=== PATIENT | female | born 1975 | race Caucasian/White ===

== ENCOUNTER 2019-08-24 12:23 | Day surgery (SDC) | payer OTHER ==
[2019-08-24 12:49] VITALS: TEMP 97.6
--- NOTE | 2019-08-24 13:52 | US ---
ULTRASOUND GUIDED FNA THYROID BIOPSY: CLINICAL HISTORY: Left thyroid nodule FINDINGS: The procedure was explained to the patient. The risks, complications, benefits and alternatives were discussed and any questions were answered. Informed consent was obtained. Patient was placed supin e on the ultrasound table and prepped and draped in the usual sterile fashion. Utilizing a 25 gauge needle, five passes were made into the requested left thyroid nodule. Patient was stable throughout the procedure. Pathology is pending. All elements of maximal barrier technique were utilized. IMPRESSION: 1. Successful ultrasound guided FNA thyroid biopsy.
[2019-08-24 13:58] VITALS: BP 99/68; PULSE 58; RESP 14
--- NOTE | 2019-08-24 14:27 | US ---
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 Thyroid nodule GLAND SIZE: Right Lobe: 5.0 x 1.2 x 1.7 cm Overall Parenchyma: homogenous Left Lobe: 4.5 x 2.1 x 2.2 cm Overall Parenchyma: homogeneous Isthmus Thickness: 0.3 cm NODULES RIGHT: # of nodules measured on right: 1 1. 0.4 X 0.3 x 0.4 cm hypoechoic solid nodule at the upper pole with well-defined margins. This nod ule is wider than tall and shows no intranodular vascularity. Prior size: no previous LEFT: # of nodules measured on left: 1 1. 2.9 X 1.7 x 2.0 cm hypoechoic solid nodule at the mid pole with well-defined margins. This nodul e is wider than tall and shows intranodular vascularity. Prior size: no previous ISTHMUS: # of nodules measured in the isthmus: 0 Bilateral neck scanned, no evidence of lymphadenopathy. Homogeneous normal-sized thyroid with 4 mm right-sided hypoechoic solid nodule and more concerning la rger 2.9 cm heterogeneous hyperechoic left-sided nodule that shows punctate echogenic foci. IMPRESSION: As above. TR 4 moderately suspicious left sided lesion. Sampling is advised. This is perf ormed same day.
== END 2019-08-24 13:50 | disposition home or self-care (01) ==
LOC: RADPROMAIN 12:23
PROVIDERS: ATTEND Otolaryngology Plastic Surgery within the Head & Neck
DX: E04.1 Nontoxic single thyroid nodule (principal)
CPT/HCPCS: 10005; 76536; 88173; 88305

== ENCOUNTER → 2019-08-24 | Outpatient (CLI) | payer OTHER | END | disposition home or self-care (01) | LOC: LABWHC1 13:52 | PROVIDERS: ATTEND Otolaryngology Plastic Surgery within the Head & Neck | DX: D49.7 Neoplasm of unspecified behavior of endocrine glands and other parts of nervous system (principal) | CPT/HCPCS: 36415; 84443 ==